=== PATIENT | male | born 1950 | race Caucasian/White ===

== ENCOUNTER 2022-02-01 23:48 | Emergency (ER) | payer OTHER ==
[2022-02-02 00:02] VITALS: BMI 28.5
[2022-02-02] MEDS ORDERED: CEFTRIAXONE 1,000 MG in DEXTROSE 5%-WATER - 50 ML IVPB ONE (00:20)
[2022-02-02] MEDS ORDERED: AZITHROMYCIN IVPB 500 MG in DEXTROSE 5%-WATER - 250 ML IVPB ONE (00:20)
[2022-02-02] MEDS ORDERED: AZITHROMYCIN 500 MG VIAL IVPB ONE (00:31)
[2022-02-02] MEDS ORDERED: cefTRIAXone SODIUM 1 GM VIAL ONE (00:31)
[2022-02-02 00:54] LABS: VENOUS BASE EXCESS 0.2 mmol/L (-2-2); VENOUS PCO2 37.2 mmHg (38-52); VENOUS PH 7.429 (7.310-7.410)
[2022-02-02 00:55] LABS: BASO % 0.5 % (0-2.0); HEMATOCRIT 42.8 % (35.4-49); HEMOGLOBIN 14.5 GM/dL (11.7-16.9); LYMPH % 21.2 % (8-40); MCH 29.9 pg (25.7-33.7); MCHC 33.8 g/dl (32.0-35.9); MEAN CELL VOLUME 88.3 fl (80-96); MEAN PLT VOLUME 9.7 fl (7.5-11.1); NEUT % 66.3 % (42.8-82.8); PLATELET COUNT 195 10^3/uL (134-434); RBC 4.85 M/mm3 (4.00-5.60); RDW 13.5 % (11.9-15.9)
[2022-02-02 01:15] LABS: ALBUMIN 4.1 g/dl (3.4-5.0); BLOOD UREA NITROGEN 24.8 mg/dL (7-18); CALCIUM 9.2 mg/dL (8.5-10.1)
[2022-02-02 01:19] LABS: CREATININE 1.3 mg/dL (0.55-1.3)
[2022-02-02 01:20] LABS: BILIRUBIN,TOTAL 0.6 mg/dL (0.2-1); TOT PROT 7.5 g/dl (6.4-8.2)
[2022-02-02] MEDS ORDERED: ACETAMINOPHEN 500 MG TABLET (FP) ONE (01:58)
[2022-02-02] MEDS ORDERED: ALBUTEROL SO4 0.083% IH SOL 2.5 MG/3 ML VIAL.NEB. NEB ONE (02:03)
[2022-02-02] MEDS ORDERED: ACETAMINOPHEN 500 MG TABLET (FP) PO ONE (02:14)
[2022-02-02] MEDS ORDERED: DEXAMETHASONE SOD PHOSPHATE 10 MG/1 ML VIAL IVPUSH ONE (02:19)
[2022-02-02] MEDS ORDERED: DEXAMETHASONE SOD PHOSPHATE 10 MG/1 ML VIAL ONE (02:23)
[2022-02-02] MEDS ORDERED: DOCUSATE SODIUM 100 MG CAPSULE (FP) PO PRN (02:56)
[2022-02-02] MEDS ORDERED: ALBUTEROL SO4 HFA INHALER IH PRN (03:12)
[2022-02-02 03:49] LABS: EPI CELLS 7 /uL (0-25.1); HYALINE CASTS 2 /uL (0-3.1); URINE APPEARANCE CLEAR; URINE BACTERIA 5 /uL (0-1359); URINE BILIRUBIN NEGATIVE (NEGATIVE); URINE COLOR YELLOW; URINE GLUCOSE (UA) NEGATIVE (NEGATIVE); URINE KETONE 2+ (NEGATIVE); URINE LEUK ESTERASE NEGATIVE (NEGATIVE); URINE NITRITE NEGATIVE (NEGATIVE); URINE PROTEIN 3+ (NEGATIVE); URINE RBC 6 /uL (0-23.9); URINE UROBILINOGEN 0.2 mg/dL (0.2-1.0); URINE WBC 12 /uL (0-25.8)
[2022-02-02] MEDS ORDERED: ASPIRIN 81 MG CHEWABLE TABLETS PO ONE (07:16)
[2022-02-02] MEDS ORDERED: ASPIRIN 81 MG CHEWABLE TABLETS ONE (07:54)
[2022-02-02] MEDS ORDERED: CLOPIDOGREL BISULFATE 75 MG TABLET (FP) ONE (07:54)
[2022-02-02 08:00] VITALS: RESP 18
[2022-02-02] MEDS ORDERED: ACETAMINOPHEN 325 MG TABLET (FP) PO PRN (08:00)
[2022-02-02 08:37] LABS: INR 1.17 (0.83-1.09); PROTHROMBIN TIME (PATIENT) 13.5 SEC (9.7-13.0)
[2022-02-02 08:39] LABS: HEMATOCRIT 44.5 % (35.4-49); HEMOGLOBIN 15.5 G/dL (11.7-16.9); MCH 30.9 pg (25.7-33.7); MCHC 34.7 g/dl (32.0-35.9); MEAN PLT VOLUME 9.5 fl (7.5-11.1); PLATELET COUNT 172.4 10^3/uL (134-434); RDW 14.1 % (11.9-15.9); WHITE BLOOD COUNT 6.5 10^3/uL (4.0-10.8)
[2022-02-02 08:40] LABS: ACTIVATED PTT 31.9 SECONDS (25.2-36.5); CALCIUM 8.8 mg/dl (8.5-10); CREATININE 1.2 mg/dl (0.55-1.3); MAGNESIUM 1.9 mg/dL (1.8-2.4); PHOSPHOROUS 4.4 mg/dl (2.5-4.9)
[2022-02-02 08:47] LABS: PLATELET ESTIMATE ADEQUATE
[2022-02-02] MEDS ORDERED: CLOPIDOGREL BISULFATE 75 MG TABLET (FP) PO SCH (10:00)
[2022-02-02] MEDS ORDERED: ENOXAPARIN NA (PORCINE) 40 MG/0.4 ML DISP.SYRIN SQ SCH (10:00)
[2022-02-02] MEDS ORDERED: ASPIRIN COATED 81 MG TABLET.EC PO SCH (10:00)
[2022-02-02 16:06] VITALS: BP 145/75; PULSE 77; TEMP 98.3
[2022-02-02] MEDS ORDERED: AZITHROMYCIN IVPB 500 MG in DEXTROSE 5%-WATER - 250 ML IVPB SCH (22:00)
[2022-02-02] MEDS ORDERED: CEFTRIAXONE 1 GM in DEXTROSE 5%-WATER - 50 ML IVPB SCH (22:00)
[2022-02-03] MEDS ORDERED: DEXAMETHASONE SOD PHOSPHATE 10 MG/1 ML VIAL IVPUSH SCH (10:00)
== END 2022-02-02 17:56 | disposition home or self-care (01) ==
LOC: FER 23:48 → EDBD 23:48 → FER 02-02 17:56
DX: U07.1 COVID-19 (principal)
CPT/HCPCS: 0241U-QW; 36415; 71045-TC-FY; 80048; 80053; 81003; 82550; 82553; 82728; 82803; 83605; 83735; 83880; 84100; 84484; 85025; 85027; 85610; 85730; 86140; 87040; 87070; 87086; 87205; 93005; 99285-25; J1100